=== PATIENT | female | born 1995 | race Two or more races ===

== ENCOUNTER 2018-11-22 02:31 | Emergency (ER) | payer OTHER, MEDICAID ==
[~2018-11-22] VITALS: Ht 154.9 cm; Wt 74.0 kg
[~2018-11-22 02:31] MED LIST: HYDR-3237 PO
[2018-11-22 02:34] VITALS: BP 119/81
== END 2018-11-22 03:18 | disposition home or self-care (01) ==
LOC: ED 03:08
DX: B35.0 Tinea barbae and tinea capitis (principal)
CPT/HCPCS: 99283

== ENCOUNTER 2019-06-21 04:13 | Emergency (ER) | payer OTHER, MEDICAID ==
[~2019-06-21] VITALS: Ht 154.9 cm; Wt 75.1 kg
[2019-06-21 04:15] VITALS: BP 127/77
== END 2019-06-21 04:43 | disposition home or self-care (01) ==
LOC: ED 04:36
DX: L98.9 Disorder of the skin and subcutaneous tissue, unspecified (principal); R21 Rash and other nonspecific skin eruption
CPT/HCPCS: 93005; 99283